=== PATIENT | female | born 1940 | race Hispanic/Latino ===

== ENCOUNTER 2023-06-14 05:47 | Day surgery (SDC) | payer OTHER ==
[2023-06-12 18:17] VITALS: BP 169/87; PULSE 62; RESP 16
[2023-06-14] VITALS (12 sets, daily range): BP systolic 98–175; BP diastolic 53–86; PULSE 59–68; RESP 14–20
[~2023-06-14] VITALS: Ht 149.9 cm; Wt 46.4 kg
[~2023-06-14 05:47] MED LIST: BACL10TA PO; BISA-151 PO; CYCL30DR OU; ENAL-87 PO; ENAL2.5T16 PO; ERGO500093 PO; ESOM40CA54 PO; IPRA0.2S54 IH; LATA2.5D14 OU; LEVO5TAB13 PO; MELO-106 PO; ONDA4TAB10 SL; ROSU5TAB12 PO; TOBR5DRO44 OS
[2023-06-14] MEDS ORDERED: PROPOFOL 10 MG/ML 20ML VIAL IV ONE (09:13)
== END 2023-06-14 11:29 | disposition home or self-care (01) ==
LOC: DAH 05:47 → ENDO 05:47
PROVIDERS: ATTEND Internal Medicine Gastroenterology
DX: K21.9 Gastro-esophageal reflux disease without esophagitis (principal); K29.50 Unspecified chronic gastritis without bleeding; K20.80 Other esophagitis without bleeding; K22.2 Esophageal obstruction; K57.10 Diverticulosis of small intestine without perforation or abscess without bleeding; R13.13 Dysphagia, pharyngeal phase; R63.4 Abnormal weight loss; K44.9 Diaphragmatic hernia without obstruction or gangrene; E78.00 Pure hypercholesterolemia, unspecified; I10 Essential (primary) hypertension; Z88.6 Allergy status to analgesic agent; Z80.1 Family history of malignant neoplasm of trachea, bronchus and lung; Z82.49 Family history of ischemic heart disease and other diseases of the circulatory system; Z83.3 Family history of diabetes mellitus; Z82.5 Family history of asthma and other chronic lower respiratory diseases; Z79.899 Other long term (current) drug therapy; Z98.49 Cataract extraction status, unspecified eye; Z90.49 Acquired absence of other specified parts of digestive tract; Z90.710 Acquired absence of both cervix and uterus
CPT/HCPCS: 93005; 82948; 43239; 43248; J2704; A4620; A4215 ×2; A4223; A7002; A4222; A4221; A4663; A4216; J7030; A4606; J3490